=== PATIENT | female | born 1995 | race Two or more races ===

== ENCOUNTER 2016-08-16 11:04 | Emergency (ER) | payer OTHER ==
[2016-08-16 11:13] VITALS: RESP 16
[2016-08-16] MEDS ORDERED: NS 1,000 ML IV ONE (11:34)
[2016-08-16 11:48] LABS: % IMMATURE GRANULYOCYTES 0.2 % (0.0-1.1); ABSOLUTE IMMATURE GRANULOCYTES 0.01 10^3/uL (0.00-0.10); ADD DIFF? NO; ADD MORPH? NO; ADD SCAN? NO; ATYPICAL LYMPHOCYTE FLAG 10 (0-99); FRAGMENT RBC FLAG 0 (0-99); HEMATOCRIT 39.3 % (38.0-47.0); HEMOGLOBIN 13.5 g/dL (12.6-16.3); LEFT SHIFT FLG 0 (0-99); LIPEMIA HEMOLYSIS FLAG 90 (0-99); MEAN CELL HEMOGLOBIN 29.8 pg (27.9-34.1); MEAN CELL HEMOGLOBIN CONCENTR. 34.4 g/dL (32.4-36.7); MEAN CELL VOLUME 86.8 fL (81.5-99.8); MEAN PLATELET VOLUME 11.2 fL (8.7-11.7); PLATELET CLUMPS FLAG 0 (0-99); PLATELET COUNT 232 10^3/uL (150-400); RED BLOOD CELL COUNT 4.53 10^6/uL (4.18-5.33); RED CELL DISTRIBUTION WIDTH 12.3 % (11.5-15.2)
[2016-08-16 12:02] LABS: ALANINE AMINOTRANSFERASE 21 IU/L (9-52); ALBUMIN 3.9 g/dL (3.5-5.0); ALKALINE PHOSPHATASE 88 IU/L (38-126); ANION GAP 16 mEq/L (8-16); ASPARTATE AMINOTRANSFERASE 17 IU/L (14-46); BILIRUBIN,TOTAL 0.7 mg/dL (0.1-1.4); CALCIUM 8.8 mg/dL (8.5-10.4); CARBON DIOXIDE 19 mEq/l (22-31); CHLORIDE 104 mEq/L (97-110); CREATININE 0.6 mg/dL (0.6-1.0); GLOMERULAR FILTRATION RATE > 60; GLUCOSE 84 mg/dL (70-100); SODIUM 139 mEq/L (134-144); TOTAL PROTEIN 7.6 g/dL (6.3-8.2)
[2016-08-16 12:31] LABS: COLOR RED; LEUKOCYTE ESTERASE,URINE TRACE (NEGATIVE); NITRITE,URINE POSITIVE (NEGATIVE); PH,URINE 6.5 (5.0-7.5)
--- NOTE | 2016-08-16 12:45 | EDPHY ---
H & P Time Seen by Provider: 08/16/16 11:34 HPI/ROS: CHIEF COMPLAINT: Vaginal bleeding, HISTORY OF PRESENT ILLNESS: 21-year-old female presents reporting that she is approximately 5 weeks . She developed crampy abdominal discomfort and vaginal bleeding yesterday. Patient reports passing clots but no tissue. No fever. No vomiting. No nausea. No back pain. No lightheadedness or dizziness. Patient has had no care thus far for this . She has an appointment to see [facility] next week. She is AB0. LMP July 02. REVIEW OF SYSTEMS: Aside from elements discussed in the HPI, a comprehensive 10-point review of systems was reviewed and is negative. PAST MEDICAL HISTORY: Past history of Chlamydia. SOCIAL HISTORY: Nonsmoker. VITAL SIGNS Reviewed by me. GENERAL: Well-developed, well-nourished, resting comfortably in no respiratory distress. HEENT: Atraumatic. Eyes: No icterus, no injection. Mouth: moist mucous membranes. No erythema or lesions. Neck: supple with no adenopathy. LUNGS: Clear to auscultation bilaterally, no wheezes, rhonchi or rales. CARDIAC: Regular rate and rhythm, no rubs, murmurs or gallops. ABDOMEN: Soft, mild suprapubic tenderness to deep palpation. Nondistended, bowel sounds normal. BACK: No CVA tenderness. EXTREMITIES: No trauma. No edema. Range of motion is normal throughout. NEURO: Alert and oriented, grossly nonfocal. SKIN: Warm and dry, no rash. PSYCHIATRIC: Normal mentation, no agitation. Smoking Status: Never smoked Constitutional: Initial Vital Signs Temperature (C) 37.0 C 08/16/16 11:09 Heart Rate 83 08/16/16 11:09 Respiratory Rate 16 08/16/16 11:09 Blood Pressure 125/73 H 08/16/16 11:09 O2 Sat (%) 95 08/16/16 11:09 O2 Delivery Mode Room Air Allergies/Adverse Reactions: No Known Allergies Allergy (Verified 08/16/16 11:08) Home Medications: Medication Instructions Recorded Cephalexin [Keflex (RX)] 500 mg PO TID 7 Days 08/16/16 08/16/16 Medical Decision Making - Diagnostics Imaging Results: Imaging Impressions Obstetrics Ultrasound 08/16/16 11:34 Impression: 1. There is no evidence of an intrauterine . 2. There is a 1.4 cm right ovarian corpus luteum cyst. There is no evidence of torsion, although there is a trace amount of free fluid in the right adnexal region. Because a viable IUP is not identified, an ectopic cannot be excluded (although there is no sonographic abnormality to specifically suggest this diagnosis. Nonetheless continued clinical correlation with follow-up sonography and quantitative beta-hCG evaluation is suggested). Findings and recommendations were discussed with Soledad Brewer MD at 12:28 pm , on 08/16/2016. Results: An ultrasound scan of the uterus was obtained. The results of the study were reported to me: No IUP seen. Endometrium is thickened to 10 mm. No blighted ovum seen, left ovary has a 1.4 cm simple cyst. Small amount of free fluid in the cul-de-sac. No secondary signs of ectopic . The study was read by Dr. Langford. I viewed the images myself on the PACS system. I discussed the results of the study with the patient. Imaging: Discussed imaging studies w/ call center rn Radiologist ED Course/Re-evaluation: 21-year-old female 5 weeks presenting with vaginal bleeding. Based on patient's LMP she is 6 weeks 4 days . test is positive, quantitative HCG is 156. Ultrasound demonstrates no visible IUP and no secondary signs of ectopic . Discussed results of the studies with the patient at length. She understands that she may have a very early , an ectopic , or have a missed spontaneous miscarriage. She understands the importance of following up at [facility]. I discussed her course with Dr. Agatha Villavicencio. Patient will have a repeat quant drawn at the outpatient lab on Saturday and [facility] will contact her by phone for further instructions. Urine positive for nitrates, bacteria, white cells, leukocyte esterase, and epithelial cells. Also significant amount of blood. May be contaminant, however, the patient did report that she feels some dysuria when urinating. Also urine is positive for nitrates. Will Place the patient on Keflex pending culture results. Differential Diagnosis: Differential diagnosis of the patient's vaginal bleeding includes dysfunctional uterine bleeding, threatened miscarriage, spontaneous miscarriage, incomplete miscarriage, ectopic , trauma, cervicitis, ovarian cysts, uterine fibroids, uterine cancer, cervical cancer, and infection. - Data Points Laboratory Results: Laboratory Results 08/16/16 11:41 08/16/16 11:41 08/16/16 08/16/16 08/16/16 11:53 11:41 11:41 WBC RBC Hgb Hct MCV MCH MCHC RDW Plt Count MPV Neut % (Auto) Lymph % (Auto) [place] % (Auto) Eos % (Auto) Baso % (Auto) Nucleat RBC Rel Count Absolute Neuts (auto) Absolute Lymphs (auto) Absolute Monos (auto) Absolute Eos (auto) Absolute Basos (auto) Absolute Nucleated RBC Immature Gran % Immature Gran # Sodium 139 mEq/L mEq/L (134-144) Potassium 4.0 mEq/L mEq/L (3.5-5.2) Chloride 104 mEq/L mEq/L (97-110) Carbon Dioxide 19 mEq/l L mEq/l (22-31) Anion Gap 16 mEq/L mEq/L (8-16) BUN 9 mg/dL mg/dL (7-23) Creatinine 0.6 mg/dL mg/dL (0.6-1.0) Estimated GFR > 60 Glucose 84 mg/dL mg/dL (70-100) Calcium 8.8 mg/dL mg/dL (8.5-10.4) Total Bilirubin 0.7 mg/dL mg/dL (0.1-1.4) AST 17 IU/L IU/L (14-46) ALT 21 IU/L IU/L (9-52) Alkaline Phosphatase 88 IU/L IU/L (38-126) Total Protein 7.6 g/dL g/dL (6.3-8.2) Albumin 3.9 g/dL g/dL (3.5-5.0) Beta HCG, Qual POSITIVE Beta HCG, Quant 158.54 mIU/mL H mIU/mL (0-4.83) Urine Color Urine Appearance Urine pH Ur Specific [place] Urine Protein Urine Ketones Urine Blood Urine Nitrate Urine Bilirubin Urine Urobilinogen Ur Leukocyte Esterase Urine RBC Urine WBC Ur Epithelial Cells Urine Bacteria Urine Mucus Urine Glucose Patient ABO/Rh O POSITIVE 08/16/16 08/16/16 11:41 11:20 WBC 6.23 10^3/uL 10^3/uL (3.80-9.50) RBC 4.53 10^6/uL 10^6/uL (4.18-5.33) Hgb 13.5 g/dL g/dL (12.6-16.3) Hct 39.3 % % (38.0-47.0) MCV 86.8 fL fL (81.5-99.8) MCH 29.8 pg pg (27.9-34.1) MCHC 34.4 g/dL g/dL (32.4-36.7) RDW 12.3 % % (11.5-15.2) Plt Count 232 10^3/uL 10^3/uL (150-400) MPV 11.2 fL fL (8.7-11.7) Neut % (Auto) 62.2 % % (39.3-74.2) Lymph % (Auto) 23.4 % % (15.0-45.0) [place] % (Auto) 9.3 % % (4.5-13.0) Eos % (Auto) 4.3 % % (0.6-7.6) Baso % (Auto) 0.6 % % (0.3-1.7) Nucleat RBC Rel Count 0.0 % % (0.0-0.2) Absolute Neuts (auto) 3.87 10^3/uL 10^3/uL (1.70-6.50) Absolute Lymphs (auto) 1.46 10^3/uL 10^3/uL (1.00-3.00) Absolute Monos (auto) 0.58 10^3/uL 10^3/uL (0.30-0.80) Absolute Eos (auto) 0.27 10^3/uL 10^3/uL (0.03-0.40) Absolute Basos (auto) 0.04 10^3/uL 10^3/uL (0.02-0.10) Absolute Nucleated RBC 0.00 10^3/uL 10^3/uL (0-0.01) Immature Gran % 0.2 % % (0.0-1.1) Immature Gran # 0.01 10^3/uL 10^3/uL (0.00-0.10) Sodium Potassium Chloride Carbon Dioxide Anion Gap BUN Creatinine Estimated GFR Glucose Calcium Total Bilirubin AST ALT Alkaline Phosphatase Total Protein Albumin Beta HCG, Qual Beta HCG, Quant Urine Color RED Urine Appearance CLOUDY Urine pH 6.5 (5.0-7.5) Ur Specific [place] 1.020 (1.002-1.030) Urine Protein 2+ H (NEGATIVE) Urine Ketones 2+ H (NEGATIVE) Urine Blood 3+ H (NEGATIVE) Urine Nitrate POSITIVE H (NEGATIVE) Urine Bilirubin NEGATIVE (NEGATIVE) Urine Urobilinogen 0.2 EU EU (0.2-1.0) Ur Leukocyte Esterase TRACE H (NEGATIVE) Urine RBC >182 /hpf H /hpf (0-3) Urine WBC 15-25 /hpf H /hpf (0-3) Ur Epithelial Cells 2+ /lpf H /lpf (NONE-1+) Urine Bacteria 2+ /hpf H /hpf (NONE SEEN) Urine Mucus 1+ /lpf /lpf (NONE-1+) Urine Glucose NEGATIVE (NEGATIVE) Patient ABO/Rh Medications Given: Discontinued Medications Sodium Chloride (Ns) 1,000 mls @ 0 mls/hr IV ONCE ONE PRN Reason: Wide Open Stop: 08/16/16 11:35 Last Admin: 08/16/16 11:41 Dose: 1,000 mls Departure - Departure Disposition: Home, Routine, Self-Care Clinical Impression: Vaginal bleeding in Qualifiers: Trimester: first trimester Qualified Code(s): O46.91 - Antepartum hemorrhage, unspecified, first trimester Urinary tract infection Qualifiers: Urinary tract infection type: site unspecified Hematuria presence: with hematuria Qualified Code(s): N39.0 - Urinary tract infection, site not specified ; R31.9 - Hematuria, unspecified Condition: Good Instructions: Threatened Miscarriage (ED) Additional Instructions: You need to follow up with the poultry feed supervisor at [facility] for repeat blood test as well as reexamination. Please go to the [facility] to the outpatient lab and have a repeat blood test drawn on Saturday. [facility] will contact you with those results either on Saturday or on Saturday. Your ultrasound does not demonstrate a fetus/ at this point. It may be because it is too early to be seen, it may be because you have already miscarried, or it may be because the is not in the uterus. We needed additional blood test in 48 hours and perhaps a repeat ultrasound to help guide further therapy. If you are having a miscarriage, you may expect to have some further vaginal bleeding. If you began bleeding heavily, pass out secondary to the bleeding, have severe pain, or developed a fever and vomiting, please return to the emergency department. Your urine shows some signs of infection. However, it is contaminated as well. I have given you a prescription of Keflex. You may begin taking this to treat any infection until the culture is available. Culture will be available in 48 hours. You may call asked the staff at [facility] to check on the urine culture. Referrals: Kyra Ruggiero MD [Primary Care Provider] - As per Instructions Prescriptions: Cephalexin [Keflex (RX)] 500 mg PO TID 7 Days
[2016-08-16 12:53] LABS: BACTERIA 2+ /hpf (NONE SEEN); MUCUS 1+ /lpf (NONE-1+); RBC,URINE >182 /hpf (0-3)
[2016-08-16 12:57] LABS: WBC,URINE 15-25 /hpf (0-3)
[2016-08-16 13:24] VITALS: BP 112/74; PULSE 74; TEMP 98.4; O2SAT 98
== END 2016-08-16 13:20 | disposition home or self-care (01) ==
LOC: CED 11:04
DX: O46.91 Antepartum hemorrhage, unspecified, first trimester (principal); O23.41 Unspecified infection of urinary tract in pregnancy, first trimester; B96.89 Other specified bacterial agents as the cause of diseases classified elsewhere; Z3A.01 Less than 8 weeks gestation of pregnancy
CPT/HCPCS: 80053-PO; 81003-PO; 81015-PO; 84702-PO; 84703-PO; 85025-PO

== ENCOUNTER 2017-01-04 13:36 | Emergency (ER) | payer OTHER ==
[2017-01-04 13:51] VITALS: TEMP 97.7; O2SAT 98
--- NOTE | 2017-01-04 14:17 | EDPHY ---
HPI/HX/ROS/PE/MDM Narrative: CHIEF COMPLAINT: Dehydration HPI: The patient is a 21-year-old female who is approximately 16 weeks with the diagnosis of hyperemesis gravidarum. She reports continued vomiting over the last week despite treatment with likely Zofran. She felt very lightheaded this morning and thought she needed to check in to get some IV fluids. She denies abdominal pain, fever, headache or pain with urination. She has follow-up [facility] and has had no issues with the thus far. Normal ultrasound etc. REVIEW OF SYSTEMS: Aside from elements discussed in the HPI, a comprehensive 10-point review of systems was reviewed and is negative. PMH: Hyperemesis gravidarum. No issues with current . 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 Denies drug abuse. PHYSICAL EXAM: General:Patient is alert, in no acute distress. ENT:Eyes are normal to inspection. ENT inspection normal. Neck: Normal inspection. Full range of motion. Respiratory:No respiratory distress. Breath sounds normal bilaterally. Cardiovascular: Regular rate and rhythm. Strong peripheral pulses. Normal cap refill. Abdomen:The abdomen is nontender to palpation. There are no peritoneal signs. There are normal bowel sounds. Back: Normal to inspection. No tenderness to palpation. Skin: Normal color. No rash. Warm and dry. Extremities: Normal appearance. Full range of motion. Neuro: Oriented x3. Normal motor function. Normal sensory function. (Niraj Harmon) ED Course: 3:45 p.m.-patient feels better and wants to go home. Declines further IV fluids. (Regla Damon) Patient was treated with IV normal saline. (Niraj Harmon) - Data Points Laboratory Results: Laboratory Results 01/04/17 14:05 01/04/17 01/04/17 15:00 14:05 Sodium 135 mEq/L mEq/L (134-144) Potassium 3.9 mEq/L mEq/L (3.5-5.2) Chloride 104 mEq/L mEq/L (97-110) Carbon Dioxide 16 mEq/l L mEq/l (22-31) Anion Gap 15 mEq/L mEq/L (8-16) BUN 7 mg/dL mg/dL (7-23) Creatinine 0.6 mg/dL mg/dL (0.6-1.0) Estimated GFR > 60 Glucose 110 mg/dL H mg/dL (70-100) Calcium 9.5 mg/dL mg/dL (8.5-10.4) Urine Color YELLOW Urine Appearance CLEAR Urine pH 5.0 (5.0-7.5) Ur Specific [place] 1.021 (1.002-1.030) Urine Protein NEGATIVE (NEGATIVE) Urine Ketones 1+ H (NEGATIVE) Urine Blood NEGATIVE (NEGATIVE) Urine Nitrate NEGATIVE (NEGATIVE) Urine Bilirubin NEGATIVE (NEGATIVE) Urine Urobilinogen NEGATIVE EU EU (0.2-1.0) Ur Leukocyte Esterase NEGATIVE (NEGATIVE) Urine Glucose NEGATIVE (NEGATIVE) Medications Given: Discontinued Medications Sodium Chloride (Ns) 1,000 mls @ 0 mls/hr IV ONCE ONE PRN Reason: Wide Open Stop: 01/04/17 15:02 Last Admin: 01/04/17 15:02 Dose: 1,000 mls General Time Seen by Provider: 01/04/17 14:11 Initial Vital Signs: Initial Vital Signs Temperature (C) 36.5 C 01/04/17 13:49 Heart Rate 71 01/04/17 13:49 Respiratory Rate 18 01/04/17 13:49 Blood Pressure 118/70 01/04/17 13:49 O2 Sat (%) 98 01/04/17 13:49 O2 Delivery Mode Room Air Allergies/Adverse Reactions: No Known Allergies Allergy (Verified 01/04/17 13:47) Home Medications: Medication Instructions Recorded 08/16/[address] 10-10 mg Tablet 01/04/17 Zofran 01/04/17 Departure - Departure Disposition: Home, Routine, Self-Care Clinical Impression: Hyperemesis gravidarum, Dehydration during Condition: Good Instructions: Hyperemesis Gravidarum (ED) Additional Instructions: Follow up with your dairy technologist for further management of your symptoms. Return to the emergency department for abdominal pain, passing out, fever or other concerns. Referrals: NONE *PRIMARY CARE P,. [Primary Care Provider] - As per Instructions
[2017-01-04] MEDS ORDERED: NS 1,000 ML IV ONE (15:01)
[2017-01-04 15:15] LABS: ANION GAP 15 mEq/L (8-16); CALCIUM 9.5 mg/dL (8.5-10.4); CARBON DIOXIDE 16 mEq/l (22-31); CHLORIDE 104 mEq/L (97-110); CREATININE 0.6 mg/dL (0.6-1.0); GLOMERULAR FILTRATION RATE > 60; GLUCOSE 110 mg/dL (70-100); POTASSIUM 3.9 mEq/L (3.5-5.2); SODIUM 135 mEq/L (134-144)
[2017-01-04 15:20] VITALS: RESP 16
[2017-01-04 15:26] LABS: COLOR YELLOW; LEUKOCYTE ESTERASE,URINE NEGATIVE (NEGATIVE); NITRITE,URINE NEGATIVE (NEGATIVE)
[2017-01-04] MEDS ORDERED: D5W LR 1,000 ML IV ONE (15:41)
[2017-01-04 16:30] VITALS: BP 118/77; PULSE 72
== END 2017-01-04 16:29 | disposition home or self-care (01) ==
DX: O21.1 Hyperemesis gravidarum with metabolic disturbance (principal); E86.9 Volume depletion, unspecified; Z3A.16 16 weeks gestation of pregnancy